=== PATIENT | female | born 1975 | race Caucasian/White ===

== ENCOUNTER 2018-04-09 06:32 | Day surgery (SDC) | payer OTHER, SELFPAY ==
[2018-04-08 07:35] VITALS: BMI 33.7
[2018-04-09] VITALS (8 sets, daily range): BP systolic 107–117; BP diastolic 55–73; PULSE 77–110; RESP 12–20; TEMP 36.1–36.6; O2SAT 92–97; BMI 34.2
[2018-04-09] MEDS: LACTATED RINGERS 1,000 ML 42 ML IV (07:27)
[2018-04-09] MEDS: CEFAZOLIN 2 GM/100 ML FROZ.PIGGY IV (07:50)
--- NOTE | 2018-04-09 08:17 | SUR.OPER ---
Supine on padded OR bed, head on pillow, arms secured on padded arm boards at <90 degrees abduction, legs uncrossed, safety belt at thigh, tape over blanket over lower legs.
[2018-04-09] MEDS: LIDOCAINE 2% W/EPI INJ 20 ML INJ (08:24)
[2018-04-09] MEDS: LIDOCAINE 2% INJ SDV 5 ML INJ (08:25)
[2018-04-09] MEDS: BUPIVACAINE 0.5% (PF) VIAL 10 ML INJ (08:27)
[2018-04-09] MEDS: DEXAMETHASONE 10 MG/ML VIAL 5 MG PO (08:29)
--- NOTE | 2018-04-09 09:00 | P.OP_ITS ---
Operative Date/Time/Diagnoses Date of procedure: 04/09/18 Time of procedure: 08:00 Pre-op diagnosis: Bunion left foot Post-op diagnosis: same Procedure & Clinicians Procedure: Simple bunionectomy, left foot Same procedure as scheduled: Yes Indications: Painful bunion deformity, left foot Surgeon: David Rios Click Yes if Unassisted: Yes Anesthesia Type: Sedation and Local (12 cc 50:50 lidocain plain/epi) Operative Notes Closure Type: primary Specimen(s): none sent Estimated Blood Loss (mL): 3 Blood products transfused: none Tourniquet time (min): 0 Procedure in detail: Operation: The patient was taken from the day surgery area back to the OR via gurney, after having been given IV antibiotic prophylaxis. She was placed on the OR table in the supine position. IV sedation was administered by the anesthesiologist, followed by local anesthetic blockade utilizing approximately 12 cc of a 50 50 mixture of lidocaine plain and with epi. The foot was then prepped and draped in the usual sterile fashion. A calf tourniquet had been applied, however, it was not utilized throughout the case. Procedure: Simple bunionectomy, left foot Attention was directed toward the dorsomedial aspect of the 1st MTP joint. A dorsal medial incision measuring approximately 4 cm was placed, centered over the palpable bunion prominence off the 1st met head. Sharp and blunt dissection were utilized through the subcutaneous tissue layer, taking care to retract all vital structures and cauterized as necessary for adequate hemostasis. A dorsal capsulotomy was performed in the capsular tissue carefully elevated off the bunion. A sagittal saw was then used to remove the bony prominence. A reciprocating rasp was utilized to smooth down the bony prominence. Good reduction of the deformity was seen. Aggressive antibiotic irrigation was performed. Closure of the wound was then performed utilizing a running stitch of 4 0 Vicryl for the capsule, and then skin closure with a running subcuticular stitch of 5 0 Vicryl. Steri-Strips were placed, a postop injection/block uti lizing 10 cc of 0.5% Marcaine plain mixed with 5 mg of dexamethasone phosphate was infiltrated. A light gauze compression bandage was then applied. The patient tolerated the procedure and anesthesia well without any apparent complications. She left the operating room with vital signs stable and digital perfusion intact. She will be allowed gradual weight-bearing protected in a postop shoe. She already has her postop appointments set up to see us next week and the following week. Complications: none Condition: stable Disposition: PACU Plan for aftercare: Post op appts already made, and post-op pain meds already dispensed.
[2018-04-09] MEDS: HYDROMORPHONE 2 MG INJ 0.25 MG IV ×2 (09:05→09:32)
== END 2018-04-09 10:12 | disposition home or self-care (01) ==
PROVIDERS: Visit Provider Podiatrist
PROC: 0QBP0ZZ Excision of Left Metatarsal, Open Approach (ICD-10-PCS; CPT 28292; principal; 2018-04-09 07:45)
DX: M21.612 Bunion of left foot (principal)
CPT/HCPCS: 28292; J0690; J1100; J1170; J2250; J2405; J2704; J3010